=== PATIENT | female | born 1945 | race Caucasian/White ===

== ENCOUNTER 2020-11-11 14:41 | Inpatient (IN) | payer MEDICARE, SELFPAY ==
[2020-11-11 15:22] VITALS: BMI 21.5
[2020-11-11 15:27] VITALS: BP 125/67; PULSE 78; RESP 18; TEMP 36.4; O2SAT 92
[2020-11-11 15:37] VITALS: BMI 21.6
[2020-11-11 16:00] VITALS: BP 125/67; PULSE 78; RESP 18; TEMP 36.4; O2SAT 92
[2020-11-11] MEDS: Gabapentin 300 MG Capsule PO (17:25)
[2020-11-11] MEDS: Ascorbic Acid 500 MG Tablet PO (17:25)
[2020-11-11] MEDS: Docusate Sodium 100 MG Capsule PO (17:25)
[2020-11-11 17:47] VITALS: PULSE 78; RESP 18; O2SAT 92
--- NOTE | 2020-11-11 19:56 | HP.PCM_ITS ---
Problem List (1) Debility Status: Acute (2) Closed left hip fracture Status: Acute (3) Primary hyperparathyroidism Status: Chronic (4) Breast cancer Status: Chronic (5) Osteoporosis Status: Chronic (6) Hypertension Status: Chronic (7) Neuropathy Status: Chronic (8) Depression Status: Chronic (9) Hyperlipidemia Status: Chronic History of Present Illness Date of Admission: 11/11/20 Chief Complaint: Here for rehabilitation, strengthening, prior to discharge home alone. 11/07/20 The patient is a 74 year old Female with below past medical history presented to [facility] Emergency Department after a fall. She was walking in a crowd with a dog, and her leg gave out. X-ray showed left hip impacted fracture and she was admitted to [facility]. IV fluids, labs reviewed, EKG normal. Consult Orthopedics. 11/08/20 Orthopedics performed implant screw cannulated hip with C-arm. Postoperative course uncomplicated. 11/11/20 Admit to TCU with debility, here for rehabilitation, strengthening, prior to discharge home alone. Past Medical History Past Medical History (Chronic Problems): Chronic Problems Primary hyperparathyroidism (Chronic) Breast cancer (Chronic) Osteoporosis (Chronic) Hypertension (Chronic) Neuropathy (Chronic) Depression (Chronic) Hyperlipidemia (Chronic) Allergies bacitracin Allergy (Verified 11/11/20 15:51) Rash codeine Allergy (Verified 11/11/20 15:51) Upset Stomach Home Medications: Ambulatory Orders Medication Instructions Recorded Ascorbic Acid [Vitamin C] 500 mg PO BID 11/11/20 Aspirin [Aspirin EC] 81 mg PO DAILY 11/11/20 Biotin 5 mg PO BID 11/11/20 Bisacodyl [Laxative] 10 mg PO DAILY 11/11/20 Calcium Carbonate/Vitamin D3 1 ea PO DAILY 11/11/20 [Calcium 500 mg Chewable Tablet] Cyanocobalamin (Vitamin B-12) 1,000 mcg PO DAILY 11/11/20 [Vitamin B-12] Docusate Sodium [Colace] 100 mg PO BID 11/11/20 Enoxaparin [Lovenox] 40 mg SC DAILY@0600 11/11/20 Fish Oil/Dha/Epa [Fish Oil 1,200 1 tab PO DAILY 11/11/20 mg Fish Oil] Gabapentin [Neurontin] 300 mg PO TID 11/11/20 Irbesartan [Avapro] 75 mg PO DAILY 11/11/20 Magnesium Hydroxide [Milk of 30 ml PO QHS 11/11/20 Magnesia] Melatonin 3 mg PO QHS 11/11/20 Multivitamin 1 ea PO DAILY 11/11/20 Ondansetron [Zofran Odt] 4 mg PO Q6H PRN PRN 11/11/20 Sertraline HCl [Zoloft] 100 mg PO DAILY 11/11/20 Simvastatin [Zocor] 20 mg PO QHS 11/11/20 Sumatriptan Succinate [Imitrex] 100 mg PO PRN 11/11/20 traMADol [Ultram (G)] 50 mg PO Q8H PRN PRN 11/11/20 Surgical History: hysterectomy - Total abdominal., - - Lumbar decompression, thyroidectomy of right lobe, right breast lumpectomy. 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 Lives: Alone Smoking Status: Former smoker Tobacco Use: Cigarettes Alcohol: Occasional Drugs: None - *Family History Maternal History Items: Diabetes, Heart Disease, Hypertension Review of Systems Constitutional: Denies: Chills, Fever, Weight Change HEENT: Denies: Head Aches, Sinus Congestion, Sinus Drainage Cardiovascular: Denies: Chest Pain, Palpitations Respiratory: Denies: Cough, Shortness of breath at rest, Sputum production Gastrointestinal: Denies: Abdominal Pain, Nausea, Vomiting Genitourinary: Denies: Dysuria Musculoskeletal: Denies: Joint Pain, Joint Tenderness Skin: Denies: Rash, Wounds Neurological: Denies: Numbness, Tingling, Focal weakness Psychiatric: Denies: Anxiety, Depression, Homicidal Ideations, Suicidal Ideations Hematologic/ Lymphatic: Denies: Easy Bruising, Easy Bleeding VTE Information - Inpt Only VTE Present on Admission: No VTE Mechan Device Prophylaxis: Knee High JAE Hose VTE Pharm Prophylaxis ordered?: Yes Patient Problems: Active and Suspected Problems Debility (Acute) Closed left hip fracture (Acute) - Physical Exam Vitals/I&O's: Vital Signs Temp Pulse Resp BP Pulse Ox 97.6 F L 78 18 125/67 H 92 11/11/20 16:00 11/11/20 17:47 11/11/20 17:47 11/11/20 16:00 11/11/20 17:47 Oxygen Delivery Method Room Air Weight: 58.831 kg Body Mass Index (BMI) 21.5 General: Alert, Oriented x3, Cooperative HEENT: Atraumatic, PERRLA, EOMI, Normocephalic Neck: Supple, No JVD, Negative Carotid Bruits Lungs: Clear to auscultation, Normal air movement Cardiovascular: Regular rate, No murmurs Abdomen: Bowel Sounds Present, Soft, Non Tender Extremities: No edema, Capillary Refill Less than 3 Seconds Skin: No rashes, No breakdown Musculoskeletal: No Tenderness to Palpation of Joints or Extremities Neurological: Cranial nerves II-XII grossly intact Psych/Mental Status: Normal Affect, Appropriate Current Medications Ascorbic Acid (Ascorbic Acid 500 Mg Tablet) 500 mg PO BID [facility] Last Admin: 11/11/20 17:25 Dose: 500 mg Documented by: Aspirin (Aspirin E.C. 81 Mg Tablet) [facility] Atorvastatin Calcium (Atorvastatin Calcium 10 Mg Tablet) 10 mg PO QHS [facility] Bisacodyl (Bisacodyl 5 Mg Tablet) 10 mg PO DAILY [facility] Calcium/Vitamin D (Calcium Carb/Vitamin D 1 Tablet Tablet) [facility] Cyanocobalamin (Cyanocobalamin 500 Mcg Tablet) 1,000 mcg PO DAILY [facility] Docusate Sodium (Docusate Sodium 100 Mg Capsule) 100 mg PO BID [facility] Last Admin: 11/11/20 17:25 Dose: 100 mg Documented by: Enoxaparin Sodium (Enoxaparin 40 Mg/0.4 Ml Syringe) 40 mg SC DAILY@0600 [facility] Stop: 12/10/20 06:01 Gabapentin (Gabapentin 300 Mg Capsule) 300 mg PO TIDCM [facility] Last Admin: 11/11/20 17:25 Dose: 300 mg Documented by: Losartan Potassium (Losartan Potassium 25 Mg Tablet) 25 mg PO DAILY [facility] Magnesium Hydroxide (Magnesium Hydroxide 30 Ml Udc) 30 ml PO QHS [facility] Melatonin (Melatonin 3 Mg Tablet) 3 mg PO QHS [facility] Multivitamins (Multivitamins,Therapeutic Tablet) [facility] Nutritional Formula (Lactose Free) (Ensure Enlive 120 Ml Liquid) 120 ml PO 4X/DAY [facility] Last Admin: 11/11/20 17:25 Dose: 120 ml Documented by: Ondansetron HCl (Ondansetron Odt 4 Mg Tablet) 4 mg PO Q6H PRN PRN PRN Reason: NAUSEA Rizatriptan Benzoate (Rizatriptan Benzoate 10 Mg Tablet) 10 mg PO DAILY PRN PRN PRN Reason: MIGRAINE SYMPTOMS Sertraline HCl (Sertraline 100 Mg Tablet) 100 mg PO DAILY JODY Tramadol HCl (Tramadol 50 Mg Tablet) 50 mg PO Q8H PRN PRN PRN Reason: Pain 1-10 or Fever Stop: 11/14/20 23:30 Tuberculin PPD (Tuberculin,Purif.Prot.Deriv. 50 Tu/Ml Vial) 5 tu ID [id number] ONE Stop: 11/12/20 10:01 Tuberculin PPD (Tuberculin,Purif.Prot.Deriv. 50 Tu/Ml Vial) 5 tu ID X1 ONE Stop: 11/19/20 10:01 Assessment/Plan All Active Problems Debility (Acute) Closed left hip fracture (Acute) 74 year old female with below past medical history hospitalized for left hip fracture, underwent closed reduction fixation 11/08/20, admitted to TCU with debility, here for rehabilitation, strengthening, prior to discharge home alone. * Debility - PT/OT. * Pain - Tylenol 1000MG Q6H PRN pain (1-3), Tramadol 50MG Q6H PRN pain (4-5), Oxycodone 5MG Q4H PRN pain (6-10). * Bowel - Miralax 17GM daily, Senna/colace 2 tablets BID, MOM 30ML daily PRN, Dulcolax 10MG DE daily PRN. * Adult immunization - Administer Prevnar 13, Pneumovax 23, Fluzone as appropriate. * DVT prophylaxis - Lovenox 40MG SC daily thru 12/10/2020. * Vitamin C deficiency - Vitamin C 500MG BID. * CV prophylaxis - Aspirin 81MG daily. * Hyperlipidemia - Atorvastatin 10MG QHS. * Calcium deficiency - Calcium D 1 tablet daily. * Vitamin B12 deficiency - B12 1000MCG daily. * Nutrition - MVI daily, Ensure 120ML 4x/day. * Neuropathy - Gabapentin 300MG TIDCM. * Hypertension - Losartan 25MG daily. * Insomnia - Melatonin 3MG QHS. * Nausea - Zofran 4MG Q6H PRN. * Migraine - Maxalt 10MG daily PRN. * Depression - Sertraline 100MG daily, stable chronic roasterman use, GDR not recommended.
[2020-11-11] MEDS: traMADol 50 MG Tablet PO (21:36)
[2020-11-11] MEDS: MELATONIN 3 MG TABLET PO (21:37)
[2020-11-11] MEDS: Atorvastatin Calcium 10 MG Tablet PO (21:38)
[2020-11-12 05:01] VITALS: BP 136/80; PULSE 66; RESP 16; TEMP 36.8; O2SAT 97
[2020-11-12] MEDS: Losartan Potassium 25 MG Tablet PO (05:21)
[2020-11-12] MEDS: Sertraline 100 MG Tablet PO (05:21)
[2020-11-12] MEDS: Cyanocobalamin 500 MCG Tablet 1000 MCG PO (05:21)
[2020-11-12] MEDS: Enoxaparin 40 MG/0.4 ML Syringe SC (05:21)
[2020-11-12] MEDS: Ascorbic Acid 500 MG Tablet PO ×2 (05:21→17:47)
[2020-11-12] MEDS: Polyethylene Glycol 3350 17 GM PACKET PO (05:22)
[2020-11-12] MEDS: Senna/Docusate Sodium 1 Tablet 2 TABLET PO ×2 (05:23→17:47)
[2020-11-12 06:05] LABS: Absolute Lymphocyte Count 1.28 X10^3/uL (0.83-4.51); Absolute Neutrophil Count 4.9 X10^3/uL (2.0-7.7); Basophil# 0.03 X10^3/uL; Basophil% 0.4 % (0-1); Eosinophil# 0.42 X10^3/uL; Eosinophils% 5.8 % (0-5); Hematocrit 36.3 % (37-47); Hemoglobin 11.5 g/dL (12.0-15.0); Lymphocyte # 1.28 X10^3/ul (4.0); Lymphocyte % 17.6 % (19-41); Mean Corp Hgb Conc 31.7 g/dL (32-36); Mean Corpuscular Hgb 29.3 pg (27.0-32.0); Mean Corpuscular Volume 92.6 fL (81-99); Mean Platelet Vol. 9.8 fl (6.2-12.0); Monocyte# 0.66 X10^3/uL; Monocyte% 9.1 % (0-10); NRBC Flagged by Analyzer 0 % (0-5); Neutrophil # 4.87 X10^3/uL (2.7-7.7); Neutrophil % 66.8 % (47-70); Platelet Count 319 K/mm3 (150-450); RBC Distribution Width CV 13.2 % (11.6-14.6); RBC Distribution Width SD 44.8 fl (35.1-43.9); Red Blood Count 3.92 M/mm3 (4.2-5.4); White Blood Count 7.3 K/mm3 (4.4-11.0)
[2020-11-12 06:37] LABS: Anion Gap 4 (5-15); BUN 20 mg/dL (7-18); BUN/Creat Ratio 41.2 RATIO (10-20); Calcium,Total 9.3 mg/dL (8.5-10.1); Chloride 105 mmol/L (98-107); Creatinine, Serum 0.49 mg/dL (0.55-1.02); EST Glomerular Filtration Rate 131 mL/min (>60); Est Glom Filt Rate - Afr Amer 159 mL/min (>60); Estimated Creatinine Clearance 43.07 ml/min; Glucose 81 mg/dL (74-106); Potassium 3.3 mmol/L (3.5-5.1); Sodium Level 139 mmol/L (136-145)
[2020-11-12] MEDS: traMADol 50 MG Tablet PO ×2 (07:16→21:11)
[2020-11-12] MEDS: Gabapentin 300 MG Capsule PO ×3 (08:40→17:47)
[2020-11-12] MEDS: Aspirin E.C. 81 MG Tablet PO (08:40)
[2020-11-12] MEDS: Multivitamins,Therapeutic Tablet 1 TABLET PO (08:40)
[2020-11-12] MEDS: Tuberculin,Purif.prot.deriv. 50 TU/ML Vial 5 ML ID (11:35)
--- NOTE | 2020-11-12 15:00 | PCM.PN.RX ---
<Jade Mackey - Last Filed: 11/12/20 15:00> Progress Note - Pharmacy Subjective: TCU Admission Objective: Allergies bacitracin Allergy (Verified 11/11/20 15:51) Rash codeine Allergy (Verified 11/11/20 15:51) Upset Stomach Current Medications Generic Name Dose Route Start Last Admin Trade Name Freq PRN Reason Stop Dose Admin Acetaminophen 1,000 mg 11/11/20 20:19 Acetaminophen 500 Mg Tablet PO Q6H PRN Pain Score 1-3 Ascorbic Acid 500 mg 11/11/20 18:00 11/12/20 05:21 Ascorbic Acid 500 Mg Tablet PO 500 mg BID JODY Administration Aspirin 81 mg 11/12/20 08:00 11/12/20 08:40 Aspirin E.C. 81 Mg Tablet PO 81 mg DAILYCM JODY Administration Atorvastatin Calcium 10 mg 11/11/20 22:00 11/11/20 21:38 Atorvastatin Calcium 10 Mg Tablet PO 10 mg QHS JODY Administration Bisacodyl 10 mg 11/11/20 20:18 Bisacodyl 10 Mg Suppository RECTAL DAILY PRN Constipation Cyanocobalamin 1,000 mcg 11/12/20 06:00 11/12/20 05:21 Cyanocobalamin 500 Mcg Tablet PO 1,000 mcg DAILY JODY Administration Enoxaparin Sodium 40 mg 11/12/20 06:00 11/12/20 05:21 Enoxaparin 40 Mg/0.4 Ml Syringe SC 12/10/20 06:01 40 mg DAILY@0600 JODY Administration Gabapentin 300 mg 11/11/20 17:45 11/12/20 11:38 Gabapentin 300 Mg Capsule PO 300 mg TIDCM JODY Administration Losartan Potassium 25 mg 11/12/20 06:00 11/12/20 05:21 Losartan Potassium 25 Mg Tablet PO 25 mg DAILY JODY Administration Magnesium Hydroxide 30 ml 11/11/20 20:19 Magnesium Hydroxide 30 Ml Udc PO DAILY PRN Constipation Melatonin 3 mg 11/11/20 22:00 11/11/20 21:37 Melatonin 3 Mg Tablet PO 3 mg QHS JODY Administration Multivitamins 1 tablet 11/12/20 08:00 11/12/20 08:40 Multivitamins,Therapeutic Tablet PO 1 tablet DAILYCM JODY Administration Ondansetron HCl 4 mg 11/11/20 15:40 Ondansetron Odt 4 Mg Tablet PO Q6H PRN PRN NAUSEA Oxycodone HCl 5 mg 11/11/20 20:20 Oxycodone 5 Mg Tablet PO Q4H PRN PRN Pain Score 6-10 Polyethylene Glycol 17 gm 11/12/20 06:00 11/12/20 05:22 Polyethylene Glycol 3350 17 Gm Packet PO 17 gm DAILY JODY Administration Potassium Chloride 20 meq 11/12/20 08:00 11/12/20 08:39 Potassium Chloride 20 Meq Tablet PO 11/19/20 08:01 20 meq DAILYCM JODY Administration Rizatriptan Benzoate 10 mg 11/11/20 16:16 Rizatriptan Benzoate 10 Mg Tablet PO DAILY PRN PRN MIGRAINE SYMPTOMS Senna/Docusate Sodium 2 tablet 11/12/20 06:00 11/12/20 05:23 Senna/Docusate Sodium 1 Tablet PO 2 tablet BID JODY Administration Sertraline HCl 100 mg 11/12/20 06:00 11/12/20 05:21 Sertraline 100 Mg Tablet PO 100 mg DAILY JODY Administration Tramadol HCl 50 mg 11/11/20 20:20 11/12/20 07:16 Tramadol 50 Mg Tablet PO 50 mg Q6H PRN Administration Pain Score 4-5 Tuberculin PPD 5 tu 11/19/20 10:00 Tuberculin,Purif.Prot.Deriv. 50 Tu/Ml Vial ID 11/19/20 10:01 X1 ONE Problem List Debility (Acute) Closed left hip fracture (Acute) Primary hyperparathyroidism (Chronic) Breast cancer (Chronic) Osteoporosis (Chronic) Hypertension (Chronic) Neuropathy (Chronic) Depression (Chronic) Hyperlipidemia (Chronic) Vital Signs Temp Pulse Resp BP Pulse Ox 98.3 F 66 16 136/80 H 97 11/12/20 05:01 11/12/20 05:01 11/12/20 05:01 11/12/20 05:01 11/12/20 05:01 Oxygen Delivery Method Room Air Weight: 58.831 kg Body Mass Index (BMI) 21.5 Sodium 139 mmol/L (136-145) 11/12/20 05:46 Potassium 3.3 mmol/L (3.5-5.1) L 11/12/20 05:46 Chloride 105 mmol/L (98-107) 11/12/20 05:46 Carbon Dioxide 30.0 mmol/L (21.0-32.0) 11/12/20 05:46 Anion Gap 4 (5-15) L 11/12/20 05:46 BUN 20 mg/dL (7-18) H 11/12/20 05:46 Creatinine 0.49 mg/dL (0.55-1.02) L 11/12/20 05:46 Est GFR (MDRD) Af Amer 159 mL/min (>60) 11/12/20 05:46 Est GFR (MDRD) Non-Af 131 mL/min (>60) 11/12/20 05:46 BUN/Creatinine Ratio 41.2 RATIO (10-20) H 11/12/20 05:46 Glucose 81 mg/dL (74-106) 11/12/20 05:46 Assessment/Plan: 1. Pain: acetaminophen 1000mg PO Q6H PRN pain 1-3/10, tramadol 50mg PO Q6H PRN pain 4-5/10 and oxycodone 5mg PO Q4H PRN pain 6-10/10. Please continue to monitor for increased pain, PRN usage, constipation and respiratory depression. 2. DVT prophylaxis: enoxaparin 40mg SC daily thru 12/10/20. Please continue to monitor for S/S of bleeding/DVT, platelets (last 319,000), hemoglobin (last 11.5g/dL) and renal function. 3. CV prophylaxis: aspirin 81mg PO daily. Please continue to monitor for S/S of bleeding. *4. Hyperlipidemia: atorvastatin 10mg PO QHS. Please consider ordering a lipid panel now and then annually as clinically appropriate. Patient does not have a panel in chart. 5. Hypertension: losartan 25mg PO daily. Please continue to monitor renal function and BP (last 136/80). 6. Neuropathy: gabapentin 300mg PO TIDCM. Please continue to monitor for confusion. 7. Insomnia: melatonin 3mg PO QHS. Please continue to monitor for excessive drowsiness. 8. Nausea: ondansetron 4mg PO Q6H PRN nausea. Please continue to monitor for nausea and PRN usage. 9. Migraine: rizatriptan 10mg PO daily PRN migraines. Please continue to monitor for migraines. 10. Hypokalemia (potassium 3.3mmol/L): potassium chloride 20mEq PO DAILYCM thru 11/19/20. Please continue to monitor potassium levels. *11. Vitamin deficiencies/overall nutrition: multivitamin 1T PO DAILYCM, ascorbic acid 500mg PO BID and cyanocobalamin 1000mcg PO daily. Please consider ordering a vitamin B12 level. Patient does not have one in chart. Thanks. Psychotropic Medications: 1. Depression: sertraline 100mg PO daily. Please see physician note regarding GDR. Unnecessary Medications: Bowel Regimen: Miralax 17gm PO daily, senna/docusate 2T PO BID, MOM 30 mL PO daily PRN constipation, and bisacodyl 10mg MS daily PRN constipation. Please continue to monitor for S/S of constipation and PRN usage. Date of Note:: 11/12/20 - Provider Comments Provider responsibility: Provider responsible to enter orders to implement recommendations <Brent Khan Chi - Last Filed: 11/12/20 15:18> Progress Note - Pharmacy Subjective: [] Objective: Allergies bacitracin Allergy (Verified 11/11/20 15:51) Rash codeine Allergy (Verified 11/11/20 15:51) Upset Stomach Current Medications Generic Name Dose Route Start Last Admin Trade Name Freq PRN Reason Stop Dose Admin Acetaminophen 1,000 mg 11/11/20 20:19 Acetaminophen 500 Mg Tablet PO Q6H PRN Pain Score 1-3 Ascorbic Acid 500 mg 11/11/20 18:00 11/12/20 05:21 Ascorbic Acid 500 Mg Tablet PO 500 mg BID JODY Administration Aspirin 81 mg 11/12/20 08:00 11/12/20 08:40 Aspirin E.C. 81 Mg Tablet PO 81 mg DAILYCM JODY Administration Atorvastatin Calcium 10 mg 11/11/20 22:00 11/11/20 21:38 Atorvastatin Calcium 10 Mg Tablet PO 10 mg QHS JODY Administration Bisacodyl 10 mg 11/11/20 20:18 Bisacodyl 10 Mg Suppository RECTAL DAILY PRN Constipation Cyanocobalamin 1,000 mcg 11/12/20 06:00 11/12/20 05:21 Cyanocobalamin 500 Mcg Tablet PO 1,000 mcg DAILY JODY Administration Enoxaparin Sodium 40 mg 11/12/20 06:00 11/12/20 05:21 Enoxaparin 40 Mg/0.4 Ml Syringe SC 12/10/20 06:01 40 mg DAILY@0600 JODY Administration Gabapentin 300 mg 11/11/20 17:45 11/12/20 11:38 Gabapentin 300 Mg Capsule PO 300 mg TIDCM JODY Administration Losartan Potassium 25 mg 11/12/20 06:00 11/12/20 05:21 Losartan Potassium 25 Mg Tablet PO 25 mg DAILY JODY Administration Magnesium Hydroxide 30 ml 11/11/20 20:19 Magnesium Hydroxide 30 Ml Udc PO DAILY PRN Constipation Melatonin 3 mg 11/11/20 22:00 11/11/20 21:37 Melatonin 3 Mg Tablet PO 3 mg QHS JODY Administration Multivitamins 1 tablet 11/12/20 08:00 11/12/20 08:40 Multivitamins,Therapeutic Tablet PO 1 tablet DAILYCM [facility] Administration Ondansetron HCl 4 mg 11/11/20 15:40 Ondansetron Odt 4 Mg Tablet PO Q6H PRN PRN NAUSEA Oxycodone HCl 5 mg 11/11/20 20:20 Oxycodone 5 Mg Tablet PO Q4H PRN PRN Pain Score 6-10 Polyethylene Glycol 17 gm 11/12/20 06:00 11/12/20 05:22 Polyethylene Glycol 3350 17 Gm Packet PO 17 gm DAILY [facility] Administration Potassium Chloride 20 meq 11/12/20 08:00 11/12/20 08:39 Potassium Chloride 20 Meq Tablet PO 11/19/20 08:01 20 meq DAILYCM [facility] Administration Rizatriptan Benzoate 10 mg 11/11/20 16:16 Rizatriptan Benzoate 10 Mg Tablet PO DAILY PRN PRN MIGRAINE SYMPTOMS Senna/Docusate Sodium 2 tablet 11/12/20 06:00 11/12/20 05:23 Senna/Docusate Sodium 1 Tablet PO 2 tablet BID [facility] Administration Sertraline HCl 100 mg 11/12/20 06:00 11/12/20 05:21 Sertraline 100 Mg Tablet PO 100 mg DAILY [facility] Administration Tramadol HCl 50 mg 11/11/20 20:20 11/12/20 07:16 Tramadol 50 Mg Tablet PO 50 mg Q6H PRN Administration Pain Score 4-5 Tuberculin PPD 5 tu 11/19/20 10:00 Tuberculin,Purif.Prot.Deriv. 50 Tu/Ml Vial ID 11/19/20 10:01 X1 ONE Problem List Debility (Acute) Closed left hip fracture (Acute) Primary hyperparathyroidism (Chronic) Breast cancer (Chronic) Osteoporosis (Chronic) Hypertension (Chronic) Neuropathy (Chronic) Depression (Chronic) Hyperlipidemia (Chronic) Vital Signs Temp Pulse Resp BP Pulse Ox 98.0 F 65 16 118/61 96 11/12/20 15:01 11/12/20 15:01 11/12/20 15:01 11/12/20 15:01 11/12/20 15:01 Oxygen Delivery Method Room Air Weight: 58.831 kg Body Mass Index (BMI) 21.5 Sodium 139 mmol/L (136-145) 11/12/20 05:46 Potassium 3.3 mmol/L (3.5-5.1) L 11/12/20 05:46 Chloride 105 mmol/L (98-107) 11/12/20 05:46 Carbon Dioxide 30.0 mmol/L (21.0-32.0) 11/12/20 05:46 Anion Gap 4 (5-15) L 11/12/20 05:46 BUN 20 mg/dL (7-18) H 11/12/20 05:46 Creatinine 0.49 mg/dL (0.55-1.02) L 11/12/20 05:46 Est GFR (MDRD) Af Amer 159 mL/min (>60) 11/12/20 05:46 Est GFR (MDRD) Non-Af 131 mL/min (>60) 11/12/20 05:46 BUN/Creatinine Ratio 41.2 RATIO (10-20) H 11/12/20 05:46 Glucose 81 mg/dL (74-106) 11/12/20 05:46 Assessment/Plan: Psychotropic Medications: Unnecessary Medications: Bowel Regimen: - Provider Comments Provider responsibility: Provider responsible to enter orders to implement recommendations Provider Comments to Recommendations by Pharmacy: Agree
[2020-11-12 15:01] VITALS: BP 118/61; PULSE 65; RESP 16; TEMP 36.7; O2SAT 96
--- NOTE | 2020-11-12 15:57 | CASEMGMT ---
Social Work Discussed code status with pt. Pt wishes to be DNR-CCA, no intubation. Nursing notified. MOLST form reviewed, communication to , placed in chart. Cielo Adams MSW AUDIOPROSTHOLOGIST
--- NOTE | 2020-11-12 16:47 | NURSING ---
Resident and nephew, Ramon, notified of staff member testing positive for COVID.
[2020-11-12] MEDS: Atorvastatin Calcium 10 MG Tablet PO (21:13)
[2020-11-12] MEDS: MELATONIN 3 MG TABLET PO (21:14)
[2020-11-13 05:58] VITALS: BP 146/75; PULSE 67; RESP 16; TEMP 36.3; O2SAT 93
[2020-11-13] MEDS: traMADol 50 MG Tablet PO ×3 (05:59→21:23)
[2020-11-13] MEDS: Polyethylene Glycol 3350 17 GM PACKET PO (06:00)
[2020-11-13] MEDS: Cyanocobalamin 500 MCG Tablet 1000 MCG PO (06:00)
[2020-11-13] MEDS: Losartan Potassium 25 MG Tablet PO (06:00)
[2020-11-13] MEDS: Sertraline 100 MG Tablet PO (06:00)
[2020-11-13] MEDS: Senna/Docusate Sodium 1 Tablet 2 TABLET PO ×2 (06:00→16:49)
[2020-11-13] MEDS: Gabapentin 300 MG Capsule PO ×3 (06:00→16:49)
[2020-11-13] MEDS: Enoxaparin 40 MG/0.4 ML Syringe SC (06:00)
[2020-11-13] MEDS: Ascorbic Acid 500 MG Tablet PO ×2 (06:01→16:50)
[2020-11-13] MEDS: Multivitamins,Therapeutic Tablet 1 TABLET PO (08:51)
[2020-11-13] MEDS: Aspirin E.C. 81 MG Tablet PO (08:51)
[2020-11-13] MEDS: Acetaminophen 500 MG Tablet 1000 MG PO (11:48)
[2020-11-13 13:54] VITALS: BP 102/59; PULSE 68; RESP 16; TEMP 36.6; O2SAT 93
[2020-11-13] MEDS: MELATONIN 3 MG TABLET PO (21:19)
[2020-11-13] MEDS: Atorvastatin Calcium 10 MG Tablet PO (21:19)
[2020-11-14 04:00] VITALS: BP 112/63; PULSE 68; RESP 18; TEMP 36.7; O2SAT 97
[2020-11-14 05:48] LABS: Anion Gap 3 (5-15); BUN 18 mg/dL (7-18); BUN/Creat Ratio 35.3 RATIO (10-20); Calcium,Total 9.3 mg/dL (8.5-10.1); Chloride 106 mmol/L (98-107); Creatinine, Serum 0.51 mg/dL (0.55-1.02); EST Glomerular Filtration Rate 124 mL/min (>60); Est Glom Filt Rate - Afr Amer 150 mL/min (>60); Estimated Creatinine Clearance 43.07 ml/min; Glucose 86 mg/dL (74-106); Potassium 4.3 mmol/L (3.5-5.1); Sodium Level 140 mmol/L (136-145)
[2020-11-14] MEDS: Cyanocobalamin 500 MCG Tablet 1000 MCG PO (06:12)
[2020-11-14] MEDS: Senna/Docusate Sodium 1 Tablet 2 TABLET PO ×2 (06:13→16:17)
[2020-11-14] MEDS: Losartan Potassium 25 MG Tablet PO (06:13)
[2020-11-14] MEDS: Sertraline 100 MG Tablet PO (06:13)
[2020-11-14] MEDS: Ascorbic Acid 500 MG Tablet PO ×2 (06:13→16:17)
[2020-11-14] MEDS: Polyethylene Glycol 3350 17 GM PACKET PO (06:14)
[2020-11-14] MEDS: Enoxaparin 40 MG/0.4 ML Syringe SC (06:16)
[2020-11-14] MEDS: Gabapentin 300 MG Capsule PO ×3 (08:42→16:17)
[2020-11-14] MEDS: Multivitamins,Therapeutic Tablet 1 TABLET PO (08:42)
[2020-11-14] MEDS: Aspirin E.C. 81 MG Tablet PO (08:42)
[2020-11-14 12:21] VITALS: BP 116/62; PULSE 63; RESP 16; TEMP 37; O2SAT 96
[2020-11-14] MEDS: Atorvastatin Calcium 10 MG Tablet PO (20:18)
[2020-11-14] MEDS: MELATONIN 3 MG TABLET PO (21:48)
[2020-11-14] MEDS: traMADol 50 MG Tablet PO (21:48)
[2020-11-15 04:41] VITALS: BP 141/82; PULSE 64; RESP 18; TEMP 36.8; O2SAT 97
[2020-11-15] MEDS: Acetaminophen 500 MG Tablet 1000 MG PO ×2 (04:42→12:29)
[2020-11-15] MEDS: Cyanocobalamin 500 MCG Tablet 1000 MCG PO (04:43)
[2020-11-15] MEDS: Losartan Potassium 25 MG Tablet PO (04:43)
[2020-11-15] MEDS: Polyethylene Glycol 3350 17 GM PACKET PO (04:43)
[2020-11-15] MEDS: Ascorbic Acid 500 MG Tablet PO ×2 (04:44→17:03)
[2020-11-15] MEDS: Gabapentin 300 MG Capsule PO ×3 (04:44→17:03)
[2020-11-15] MEDS: Senna/Docusate Sodium 1 Tablet 2 TABLET PO ×2 (04:44→17:03)
[2020-11-15] MEDS: Sertraline 100 MG Tablet PO (04:44)
[2020-11-15] MEDS: Enoxaparin 40 MG/0.4 ML Syringe SC (04:45)
[2020-11-15] MEDS: Multivitamins,Therapeutic Tablet 1 TABLET PO (08:44)
[2020-11-15] MEDS: Aspirin E.C. 81 MG Tablet PO (08:44)
[2020-11-15 14:54] VITALS: BP 113/63; PULSE 63; RESP 18; TEMP 36.2; O2SAT 95
[2020-11-15] MEDS: MELATONIN 3 MG TABLET PO (21:33)
[2020-11-15] MEDS: Atorvastatin Calcium 10 MG Tablet PO (21:33)
[2020-11-15] MEDS: traMADol 50 MG Tablet PO (23:37)
[2020-11-16 05:44] VITALS: BP 138/62; PULSE 63; RESP 18; TEMP 36.3; O2SAT 94
[2020-11-16] MEDS: Cyanocobalamin 500 MCG Tablet 1000 MCG PO (05:45)
[2020-11-16] MEDS: Sertraline 100 MG Tablet PO (05:45)
[2020-11-16] MEDS: Enoxaparin 40 MG/0.4 ML Syringe SC (05:45)
[2020-11-16] MEDS: Ascorbic Acid 500 MG Tablet PO ×2 (05:45→17:02)
[2020-11-16] MEDS: Losartan Potassium 25 MG Tablet PO (05:45)
[2020-11-16] MEDS: Gabapentin 300 MG Capsule PO ×3 (05:45→17:02)
[2020-11-16] MEDS: Aspirin E.C. 81 MG Tablet PO (08:38)
[2020-11-16] MEDS: Multivitamins,Therapeutic Tablet 1 TABLET PO (08:38)
[2020-11-16] MEDS: Acetaminophen 500 MG Tablet 1000 MG PO (10:42)
[2020-11-16 14:32] VITALS: BP 102/49; PULSE 61; RESP 16; TEMP 36.6; O2SAT 95
[2020-11-16] MEDS: Senna/Docusate Sodium 1 Tablet 2 TABLET PO (17:02)
[2020-11-16] MEDS: MELATONIN 3 MG TABLET PO (20:43)
[2020-11-16] MEDS: Atorvastatin Calcium 10 MG Tablet PO (20:43)
[2020-11-16] MEDS: traMADol 50 MG Tablet PO (20:48)
[2020-11-17 04:00] VITALS: BP 129/50; PULSE 60; RESP 18; TEMP 36.7; O2SAT 96
[2020-11-17] MEDS: Losartan Potassium 25 MG Tablet PO (07:12)
[2020-11-17] MEDS: Enoxaparin 40 MG/0.4 ML Syringe SC (07:12)
[2020-11-17] MEDS: Ascorbic Acid 500 MG Tablet PO ×2 (07:13→16:29)
[2020-11-17] MEDS: Cyanocobalamin 500 MCG Tablet 1000 MCG PO (07:13)
[2020-11-17] MEDS: Sertraline 100 MG Tablet PO (07:13)
[2020-11-17] MEDS: Aspirin E.C. 81 MG Tablet PO (08:27)
[2020-11-17] MEDS: Multivitamins,Therapeutic Tablet 1 TABLET PO (08:28)
[2020-11-17] MEDS: Gabapentin 300 MG Capsule PO ×3 (08:28→16:29)
--- NOTE | 2020-11-17 12:54 | CASEMGMT ---
Social Work IDT met with patient and nephew via conference call for care plan meeting. Discussed patient's progress in therapy. Pt is SBA for bed mobility, CGA for tx, CGA to ambulate 15 ft with FWW and maintaining TTWBS. Pt is set up for UE ADLs at w/c level, supervised for LE ADLS, CGA for toileting, CGA for shower tx. Pt is on a regular diet, good intake, weight stable. Pt is out of isolation 11/25. Explained [employer] insurance with NRD 11/22 and continued stay is not guaranteed. Pt's goal is to return home alone with 3 steps to enter at [facility]. Explained pt is progressing well and continued stay from insurance is not guaranteed. Pt stated she has appealed twice prior from insurance cuts, and feels she is not ready to DC home. Discussed areas to continue to strengthen. Pt would like to be independent for bed mobility, and states she is currently needing assistance with left leg. She will also like to be independent in the shower and with toileting, and does not feel safe alone currently. therapist took note of requested areas to improve upon. SW provided list of nonskilled [facility] agencies to begin looking to hire if pt is cut and still does not feel safe at home alone. Will continue to follow. Cielo Adams, TRAILER TANK TRUCK DRIVER BOND WRITER
[2020-11-17 14:50] VITALS: BP 129/51; PULSE 58; RESP 16; TEMP 36.7; O2SAT 95
[2020-11-17] MEDS: traMADol 50 MG Tablet PO ×2 (16:26→23:06)
[2020-11-17] MEDS: Senna/Docusate Sodium 1 Tablet 2 TABLET PO (16:29)
[2020-11-17 16:30] VITALS: PULSE 58; RESP 18; O2SAT 96
[2020-11-17] MEDS: Atorvastatin Calcium 10 MG Tablet PO (20:13)
[2020-11-17] MEDS: MELATONIN 3 MG TABLET PO (20:13)
[2020-11-17] MEDS: Acetaminophen 500 MG Tablet 1000 MG PO (20:14)
[2020-11-18 04:00] VITALS: BP 114/54; PULSE 59; RESP 16; TEMP 36.3; O2SAT 97
[2020-11-18] MEDS: Cyanocobalamin 500 MCG Tablet 1000 MCG PO (06:11)
[2020-11-18] MEDS: Losartan Potassium 25 MG Tablet PO (06:11)
[2020-11-18] MEDS: Sertraline 100 MG Tablet PO (06:11)
[2020-11-18] MEDS: Ascorbic Acid 500 MG Tablet PO ×2 (06:12→17:42)
[2020-11-18] MEDS: Enoxaparin 40 MG/0.4 ML Syringe SC (06:12)
[2020-11-18] MEDS: Acetaminophen 500 MG Tablet 1000 MG PO (06:45)
[2020-11-18] MEDS: Polyethylene Glycol 3350 17 GM PACKET PO (06:47)
[2020-11-18] MEDS: Aspirin E.C. 81 MG Tablet PO (09:00)
[2020-11-18] MEDS: Multivitamins,Therapeutic Tablet 1 TABLET PO (09:00)
[2020-11-18] MEDS: Gabapentin 300 MG Capsule PO ×3 (09:00→17:42)
[2020-11-18] MEDS: traMADol 50 MG Tablet PO ×2 (11:23→21:18)
[2020-11-18 14:27] VITALS: BP 118/52; PULSE 60; RESP 16; TEMP 36.6; O2SAT 96
[2020-11-18] MEDS: Senna/Docusate Sodium 1 Tablet 2 TABLET PO (17:42)
[2020-11-18] MEDS: Atorvastatin Calcium 10 MG Tablet PO (21:19)
[2020-11-18] MEDS: MELATONIN 3 MG TABLET PO (21:19)
[2020-11-19] MEDS: Acetaminophen 500 MG Tablet 1000 MG PO ×2 (01:38→12:02)
[2020-11-19 01:58] VITALS: BP 123/58; PULSE 55; RESP 16; TEMP 36.6; O2SAT 96
[2020-11-19] MEDS: Polyethylene Glycol 3350 17 GM PACKET PO (06:02)
[2020-11-19] MEDS: Ascorbic Acid 500 MG Tablet PO ×2 (06:04→17:34)
[2020-11-19] MEDS: Sertraline 100 MG Tablet PO (06:04)
[2020-11-19] MEDS: Losartan Potassium 25 MG Tablet PO (06:04)
[2020-11-19] MEDS: Cyanocobalamin 500 MCG Tablet 1000 MCG PO (06:05)
[2020-11-19] MEDS: Senna/Docusate Sodium 1 Tablet 2 TABLET PO ×2 (06:05→17:34)
[2020-11-19] MEDS: Enoxaparin 40 MG/0.4 ML Syringe SC (06:06)
[2020-11-19 06:10] LABS: Absolute Lymphocyte Count 1.63 X10^3/uL (0.83-4.51); Absolute Neutrophil Count 6.3 X10^3/uL (2.0-7.7); Basophil# 0.04 X10^3/uL; Basophil% 0.4 % (0-1); Eosinophil# 0.33 X10^3/uL; Eosinophils% 3.7 % (0-5); Hematocrit 37.3 % (37-47); Hemoglobin 11.7 g/dL (12.0-15.0); Lymphocyte # 1.63 X10^3/ul (4.0); Lymphocyte % 18.2 % (19-41); Mean Corp Hgb Conc 31.4 g/dL (32-36); Mean Corpuscular Hgb 29.6 pg (27.0-32.0); Mean Corpuscular Volume 94.4 fL (81-99); Mean Platelet Vol. 9.2 fl (6.2-12.0); Monocyte# 0.58 X10^3/uL; Monocyte% 6.5 % (0-10); NRBC Flagged by Analyzer 0 % (0-5); Neutrophil # 6.31 X10^3/uL (2.7-7.7); Neutrophil % 70.6 % (47-70); Platelet Count 471 K/mm3 (150-450); RBC Distribution Width CV 13.6 % (11.6-14.6); RBC Distribution Width SD 47.1 fl (35.1-43.9); Red Blood Count 3.95 M/mm3 (4.2-5.4); White Blood Count 8.9 K/mm3 (4.4-11.0)
[2020-11-19 06:39] LABS: Anion Gap 3 (5-15); BUN 23 mg/dL (7-18); BUN/Creat Ratio 38.2 RATIO (10-20); Calcium,Total 9.5 mg/dL (8.5-10.1); Chloride 106 mmol/L (98-107); EST Glomerular Filtration Rate 103 mL/min (>60); Est Glom Filt Rate - Afr Amer 124 mL/min (>60); Estimated Creatinine Clearance 43.07 ml/min; Glucose 82 mg/dL (74-106); Potassium 4.3 mmol/L (3.5-5.1); Sodium Level 138 mmol/L (136-145)
[2020-11-19] MEDS: Multivitamins,Therapeutic Tablet 1 TABLET PO (08:09)
[2020-11-19] MEDS: Gabapentin 300 MG Capsule PO ×3 (08:09→17:34)
[2020-11-19] MEDS: Aspirin E.C. 81 MG Tablet PO (08:09)
[2020-11-19 09:27] VITALS: PULSE 62; RESP 16; O2SAT 95
[2020-11-19] MEDS: Tuberculin,Purif.prot.deriv. 50 TU/ML Vial 5 ML ID (10:35)
[2020-11-19 15:41] VITALS: BP 111/50; PULSE 65; RESP 16; TEMP 36.8; O2SAT 95
[2020-11-19] MEDS: Atorvastatin Calcium 10 MG Tablet PO (20:51)
[2020-11-19] MEDS: MELATONIN 3 MG TABLET PO (20:51)
[2020-11-19] MEDS: traMADol 50 MG Tablet PO (20:52)
[2020-11-20] MEDS: Acetaminophen 500 MG Tablet 1000 MG PO ×2 (01:16→12:05)
[2020-11-20 04:00] VITALS: BP 135/75; PULSE 59; RESP 16; TEMP 36.3; O2SAT 94
[2020-11-20] MEDS: Sertraline 100 MG Tablet PO (06:16)
[2020-11-20] MEDS: Cyanocobalamin 500 MCG Tablet 1000 MCG PO (06:16)
[2020-11-20] MEDS: Losartan Potassium 25 MG Tablet PO (06:16)
[2020-11-20] MEDS: Senna/Docusate Sodium 1 Tablet 2 TABLET PO ×2 (06:17→17:30)
[2020-11-20] MEDS: Ascorbic Acid 500 MG Tablet PO ×2 (06:17→17:30)
[2020-11-20] MEDS: Polyethylene Glycol 3350 17 GM PACKET PO (06:17)
[2020-11-20] MEDS: Enoxaparin 40 MG/0.4 ML Syringe SC (06:20)
[2020-11-20] MEDS: Aspirin E.C. 81 MG Tablet PO (08:29)
[2020-11-20] MEDS: Multivitamins,Therapeutic Tablet 1 TABLET PO (08:29)
[2020-11-20] MEDS: Gabapentin 300 MG Capsule PO ×3 (08:29→17:30)
[2020-11-20 14:29] VITALS: BP 121/60; PULSE 57; RESP 16; TEMP 36.8; O2SAT 93
[2020-11-20] MEDS: traMADol 50 MG Tablet PO (17:35)
[2020-11-20] MEDS: Atorvastatin Calcium 10 MG Tablet PO (21:55)
[2020-11-20] MEDS: MELATONIN 3 MG TABLET PO (22:01)
[2020-11-21] MEDS: traMADol 50 MG Tablet PO ×2 (00:29→21:53)
[2020-11-21 05:21] VITALS: BP 142/73; PULSE 62; RESP 16; TEMP 36.3; O2SAT 97
[2020-11-21] MEDS: Enoxaparin 40 MG/0.4 ML Syringe SC (05:21)
[2020-11-21] MEDS: Sertraline 100 MG Tablet PO (05:23)
[2020-11-21] MEDS: Ascorbic Acid 500 MG Tablet PO ×2 (05:23→16:48)
[2020-11-21] MEDS: Gabapentin 300 MG Capsule PO ×3 (05:23→16:48)
[2020-11-21] MEDS: Cyanocobalamin 500 MCG Tablet 1000 MCG PO (05:23)
[2020-11-21] MEDS: Losartan Potassium 25 MG Tablet PO (05:23)
[2020-11-21] MEDS: Acetaminophen 500 MG Tablet 1000 MG PO (08:39)
[2020-11-21] MEDS: Multivitamins,Therapeutic Tablet 1 TABLET PO (08:40)
[2020-11-21] MEDS: Aspirin E.C. 81 MG Tablet PO (08:40)
[2020-11-21 14:22] VITALS: PULSE 64; RESP 16; O2SAT 97
[2020-11-21 15:57] VITALS: BP 109/63; PULSE 58; RESP 16; TEMP 36.4; O2SAT 95
[2020-11-21] MEDS: Atorvastatin Calcium 10 MG Tablet PO (21:49)
[2020-11-21] MEDS: MELATONIN 3 MG TABLET PO (21:52)
[2020-11-22] MEDS: Acetaminophen 500 MG Tablet 1000 MG PO ×3 (00:13→20:59)
--- NOTE | 2020-11-22 00:19 | NURSING ---
Addendum entered by Alma Peterson 11/22/20 06:07: Incision site reassessed this am, area is firm and tender, warm to the touch, will update Dr. Khan. Original Note: Pt called out, c/o increased pain in lt hip/thigh, shooting pains down her thigh. Does not want oxy ir at this time, will try Tylenol. repositioned and warm blanket applied to lt hip/thigh. No warmth, redness to lt hip/thigh area, does have some edema. Note left for Dr. Cormier/Dr. Khan to address in am.
[2020-11-22] MEDS: oxyCODONE 5 MG Tablet PO (01:17)
[2020-11-22 06:03] VITALS: BP 112/62; PULSE 58; RESP 16; TEMP 36.7; O2SAT 96
[2020-11-22] MEDS: Enoxaparin 40 MG/0.4 ML Syringe SC (06:03)
[2020-11-22] MEDS: Ascorbic Acid 500 MG Tablet PO ×2 (06:05→16:38)
[2020-11-22] MEDS: Losartan Potassium 25 MG Tablet PO (06:05)
[2020-11-22] MEDS: Gabapentin 300 MG Capsule PO ×3 (06:05→16:37)
[2020-11-22] MEDS: Sertraline 100 MG Tablet PO (06:05)
[2020-11-22] MEDS: Senna/Docusate Sodium 1 Tablet 2 TABLET PO ×2 (06:05→16:37)
[2020-11-22] MEDS: Cyanocobalamin 500 MCG Tablet 1000 MCG PO (06:05)
[2020-11-22] MEDS: Multivitamins,Therapeutic Tablet 1 TABLET PO (09:07)
[2020-11-22] MEDS: Aspirin E.C. 81 MG Tablet PO (09:07)
--- NOTE | 2020-11-22 12:11 | NURSING ---
R' C/O ODOR AROUND GENITALIA. STATES SHE HAS HAD UTI'S WITH ODOR SIMILAR TO THIS. DENIES BURNING/FREQUENCY/URGENCY. ALSO, STATES HAS A HX OF CARUNCLES WITH SIMILAR ODOR. STATES USED ESTROGEN CREAM BUT GYNO DR DOES NOT LIKE TO USE A LOT D/T HX OF BREAST CA. WILL UPDATE DR. MONACO.
[2020-11-22 14:51] VITALS: BP 107/79; PULSE 66; RESP 16; TEMP 36.7; O2SAT 96
[2020-11-22] MEDS: Doxycycline 100 MG CAPSULE PO (16:37)
[2020-11-22] MEDS: Cephalexin 500 MG Capsule PO (16:38)
[2020-11-22 20:59] LABS: Mucous, Urine 0 SEEN /hpf (<or=2+); Red Blood Cells-Urine 0 SEEN /hpf (0-5)
[2020-11-22] MEDS: Atorvastatin Calcium 10 MG Tablet PO (20:59)
[2020-11-22] MEDS: MELATONIN 3 MG TABLET PO (20:59)
[2020-11-22 21:14] LABS: Color, Urine Yellow (Yellow); Glucose, Dipstick Normal (Normal); Ketone-Dipstick 5 mg/dl (Negative); Leukocyte Esterase-Dipstick 500 /ul (Negative); Nitrite-Dipstick Negative (Negative); Occult Blood-Urine 50 /ul (Negative); Protein-Dipstick 100 mg/dl (Negative); Urine Bilirubin Dipstick Negative (Negative); Urine Clarity Cloudy (Clear); Urine Urobilinogen 1 mg/dl (Normal)
[2020-11-22 21:40] LABS: Bacteria 1+ /hpf (None Seen); Squamous Epithelial Cells - UA 5-10 SEEN /hpf (5-10); White Blood Cells >100 SEEN /hpf (0-5)
[2020-11-22] MEDS: traMADol 50 MG Tablet PO (22:17)
--- NOTE | 2020-11-22 22:29 | NURSING ---
Patient c/o of burning pain in left leg. Patient unable to have sheet on her because it makes her leg burn too much. Dr. Khan notified of this. New orders given.
[2020-11-23 05:39] VITALS: BP 125/53; PULSE 60; RESP 16; TEMP 36.8; O2SAT 95
[2020-11-23] MEDS: Enoxaparin 40 MG/0.4 ML Syringe SC (05:40)
[2020-11-23] MEDS: Senna/Docusate Sodium 1 Tablet 2 TABLET PO ×2 (05:41→17:12)
[2020-11-23] MEDS: Cyanocobalamin 500 MCG Tablet 1000 MCG PO (05:41)
[2020-11-23] MEDS: Doxycycline 100 MG CAPSULE PO ×2 (05:41→17:11)
[2020-11-23] MEDS: Ascorbic Acid 500 MG Tablet PO ×2 (05:42→17:12)
[2020-11-23] MEDS: Losartan Potassium 25 MG Tablet PO (05:42)
[2020-11-23] MEDS: Sertraline 100 MG Tablet PO (05:42)
[2020-11-23] MEDS: Cephalexin 500 MG Capsule PO ×2 (05:42→17:12)
[2020-11-23] MEDS: Gabapentin 300 MG Capsule PO ×3 (08:01→17:11)
[2020-11-23] MEDS: Multivitamins,Therapeutic Tablet 1 TABLET PO (08:01)
[2020-11-23] MEDS: Aspirin E.C. 81 MG Tablet PO (08:01)
[2020-11-23 15:29] VITALS: BP 105/71; PULSE 71; RESP 18; TEMP 36.7; O2SAT 94
--- NOTE | 2020-11-23 15:36 | NURSING ---
Resident and family updated on COVID status on unit.
[2020-11-23] MEDS: Atorvastatin Calcium 10 MG Tablet PO (20:32)
[2020-11-23] MEDS: MELATONIN 3 MG TABLET PO (20:33)
[2020-11-24 04:47] VITALS: BP 128/57; PULSE 58; RESP 16; TEMP 36.8; O2SAT 97
[2020-11-24] MEDS: Cephalexin 500 MG Capsule PO ×2 (04:49→16:11)
[2020-11-24] MEDS: Ascorbic Acid 500 MG Tablet PO ×2 (04:49→16:11)
[2020-11-24] MEDS: Enoxaparin 40 MG/0.4 ML Syringe SC (04:49)
[2020-11-24] MEDS: Doxycycline 100 MG CAPSULE PO ×2 (04:49→16:11)
[2020-11-24] MEDS: Cyanocobalamin 500 MCG Tablet 1000 MCG PO (04:49)
[2020-11-24] MEDS: Sertraline 100 MG Tablet PO (04:49)
[2020-11-24] MEDS: Losartan Potassium 25 MG Tablet PO (04:50)
[2020-11-24] MEDS: Multivitamins,Therapeutic Tablet 1 TABLET PO (08:41)
[2020-11-24] MEDS: Gabapentin 300 MG Capsule PO ×3 (08:41→16:11)
[2020-11-24] MEDS: Aspirin E.C. 81 MG Tablet PO (08:41)
--- NOTE | 2020-11-24 12:18 | MDS.RN ---
Information for the mds was obtained from review of the clinical record, interview of resident, staff, and direct observation of resident's care.
[2020-11-24 14:07] VITALS: BP 138/42; PULSE 70; RESP 16; TEMP 36.4; O2SAT 96
[2020-11-24] MEDS: Acetaminophen 500 MG Tablet 1000 MG PO (15:49)
[2020-11-24] MEDS: Atorvastatin Calcium 10 MG Tablet PO (21:45)
[2020-11-24] MEDS: MELATONIN 3 MG TABLET PO (21:46)
[2020-11-25 02:17] VITALS: BP 113/66; PULSE 58; RESP 16; TEMP 36.7; O2SAT 98
[2020-11-25] MEDS: Acetaminophen 500 MG Tablet 1000 MG PO (02:18)
[2020-11-25] MEDS: Sertraline 100 MG Tablet PO (05:25)
[2020-11-25] MEDS: Ascorbic Acid 500 MG Tablet PO ×2 (05:25→17:00)
[2020-11-25] MEDS: Enoxaparin 40 MG/0.4 ML Syringe SC (05:25)
[2020-11-25] MEDS: Doxycycline 100 MG CAPSULE PO ×2 (05:25→17:01)
[2020-11-25] MEDS: Cephalexin 500 MG Capsule PO ×2 (05:25→17:01)
[2020-11-25] MEDS: Losartan Potassium 25 MG Tablet PO (05:25)
[2020-11-25] MEDS: Cyanocobalamin 500 MCG Tablet 1000 MCG PO (05:25)
[2020-11-25] MEDS: Gabapentin 300 MG Capsule PO ×3 (08:05→17:01)
[2020-11-25] MEDS: Multivitamins,Therapeutic Tablet 1 TABLET PO (08:06)
[2020-11-25] MEDS: Aspirin E.C. 81 MG Tablet PO (08:48)
[2020-11-25 10:00] VITALS: PULSE 62; RESP 16; O2SAT 96
[2020-11-25 16:00] VITALS: BP 122/56; PULSE 58; RESP 16; TEMP 37; O2SAT 98
[2020-11-25] MEDS: MELATONIN 3 MG TABLET PO (21:12)
[2020-11-25] MEDS: traMADol 50 MG Tablet 100 MG PO (21:12)
[2020-11-25] MEDS: Atorvastatin Calcium 10 MG Tablet PO (21:12)
[2020-11-26] MEDS: Enoxaparin 40 MG/0.4 ML Syringe SC (05:02)
[2020-11-26] MEDS: Losartan Potassium 25 MG Tablet PO (05:03)
[2020-11-26] MEDS: Cyanocobalamin 500 MCG Tablet 1000 MCG PO (05:03)
[2020-11-26] MEDS: Ascorbic Acid 500 MG Tablet PO ×2 (05:03→17:09)
[2020-11-26] MEDS: Sertraline 100 MG Tablet PO (05:03)
[2020-11-26] MEDS: Cephalexin 500 MG Capsule PO ×2 (05:03→17:09)
[2020-11-26] MEDS: Doxycycline 100 MG CAPSULE PO ×2 (05:03→17:09)
[2020-11-26] MEDS: Acetaminophen 500 MG Tablet 1000 MG PO (06:01)
[2020-11-26 06:19] LABS: Absolute Lymphocyte Count 1.54 X10^3/uL (0.83-4.51); Absolute Neutrophil Count 4.7 X10^3/uL (2.0-7.7); Basophil# 0.04 X10^3/uL; Basophil% 0.6 % (0-1); Eosinophil# 0.33 X10^3/uL; Eosinophils% 4.6 % (0-5); Hematocrit 38.9 % (37-47); Hemoglobin 12.1 g/dL (12.0-15.0); Lymphocyte # 1.54 X10^3/ul (4.0); Lymphocyte % 21.7 % (19-41); Mean Corp Hgb Conc 31.1 g/dL (32-36); Mean Corpuscular Hgb 29.7 pg (27.0-32.0); Mean Corpuscular Volume 95.6 fL (81-99); Mean Platelet Vol. 9.3 fl (6.2-12.0); NRBC Flagged by Analyzer 0 % (0-5); Neutrophil # 4.67 X10^3/uL (2.7-7.7); Neutrophil % 65.7 % (47-70); Platelet Count 519 K/mm3 (150-450); RBC Distribution Width CV 14.6 % (11.6-14.6); RBC Distribution Width SD 50.9 fl (35.1-43.9); Red Blood Count 4.07 M/mm3 (4.2-5.4); White Blood Count 7.1 K/mm3 (4.4-11.0)
[2020-11-26 06:39] LABS: Anion Gap 2 (5-15); BUN 27 mg/dL (7-18); BUN/Creat Ratio 39.6 RATIO (10-20); Calcium,Total 9.8 mg/dL (8.5-10.1); Chloride 109 mmol/L (98-107); Creatinine, Serum 0.68 mg/dL (0.55-1.02); EST Glomerular Filtration Rate 89 mL/min (>60); Est Glom Filt Rate - Afr Amer 108 mL/min (>60); Estimated Creatinine Clearance 43.07 ml/min; Glucose 75 mg/dL (74-106); Potassium 4.4 mmol/L (3.5-5.1); Sodium Level 142 mmol/L (136-145)
[2020-11-26] MEDS: Gabapentin 300 MG Capsule PO ×3 (08:18→17:09)
[2020-11-26] MEDS: Aspirin E.C. 81 MG Tablet PO (08:18)
[2020-11-26] MEDS: Multivitamins,Therapeutic Tablet 1 TABLET PO (08:18)
[2020-11-26 13:45] VITALS: BP 118/70; PULSE 68; RESP 16; TEMP 36.6; O2SAT 98
[2020-11-26] MEDS: Senna/Docusate Sodium 1 Tablet 2 TABLET PO (17:10)
[2020-11-26] MEDS: Atorvastatin Calcium 10 MG Tablet PO (21:02)
[2020-11-26] MEDS: MELATONIN 3 MG TABLET PO (21:02)
[2020-11-26] MEDS: traMADol 50 MG Tablet 100 MG PO (22:35)
[2020-11-27 04:00] VITALS: BP 115/73; PULSE 57; RESP 18; TEMP 36.6; O2SAT 96
[2020-11-27] MEDS: Senna/Docusate Sodium 1 Tablet 2 TABLET PO ×2 (05:55→16:47)
[2020-11-27] MEDS: Doxycycline 100 MG CAPSULE PO ×2 (05:55→16:48)
[2020-11-27] MEDS: Ascorbic Acid 500 MG Tablet PO ×2 (05:55→16:47)
[2020-11-27] MEDS: Cyanocobalamin 500 MCG Tablet 1000 MCG PO (05:55)
[2020-11-27] MEDS: Sertraline 100 MG Tablet PO (05:55)
[2020-11-27] MEDS: Losartan Potassium 25 MG Tablet PO (05:55)
[2020-11-27] MEDS: Cephalexin 500 MG Capsule PO ×2 (05:55→16:48)
[2020-11-27] MEDS: Enoxaparin 40 MG/0.4 ML Syringe SC (05:56)
[2020-11-27] MEDS: Aspirin E.C. 81 MG Tablet PO (08:07)
[2020-11-27] MEDS: Multivitamins,Therapeutic Tablet 1 TABLET PO (08:07)
[2020-11-27] MEDS: Gabapentin 300 MG Capsule PO ×3 (08:07→16:48)
[2020-11-27 13:52] VITALS: BP 112/47; PULSE 62; RESP 16; TEMP 36.4; O2SAT 96
[2020-11-27] MEDS: traMADol 50 MG Tablet 100 MG PO ×2 (16:48→22:48)
[2020-11-27] MEDS: Atorvastatin Calcium 10 MG Tablet PO (20:37)
[2020-11-27] MEDS: MELATONIN 3 MG TABLET PO (20:37)
[2020-11-28 06:33] VITALS: BP 107/56; PULSE 57; RESP 16; TEMP 37.1; O2SAT 97
[2020-11-28] MEDS: Enoxaparin 40 MG/0.4 ML Syringe SC (06:34)
[2020-11-28] MEDS: Ascorbic Acid 500 MG Tablet PO ×2 (06:34→16:54)
[2020-11-28] MEDS: Cephalexin 500 MG Capsule PO ×2 (06:35→16:54)
[2020-11-28] MEDS: Sertraline 100 MG Tablet PO (06:35)
[2020-11-28] MEDS: Cyanocobalamin 500 MCG Tablet 1000 MCG PO (06:35)
[2020-11-28] MEDS: Doxycycline 100 MG CAPSULE PO ×2 (06:35→16:54)
[2020-11-28] MEDS: Losartan Potassium 25 MG Tablet PO (06:35)
[2020-11-28] MEDS: Multivitamins,Therapeutic Tablet 1 TABLET PO (08:05)
[2020-11-28] MEDS: Gabapentin 300 MG Capsule PO ×3 (08:06→16:54)
[2020-11-28] MEDS: Aspirin E.C. 81 MG Tablet PO (08:06)
[2020-11-28 14:02] VITALS: BP 119/68; PULSE 60; RESP 18; TEMP 36.3; O2SAT 94
[2020-11-28] MEDS: traMADol 50 MG Tablet 100 MG PO (21:30)
[2020-11-28] MEDS: Atorvastatin Calcium 10 MG Tablet PO (21:31)
[2020-11-28] MEDS: MELATONIN 3 MG TABLET PO (21:31)
[2020-11-29] MEDS: Acetaminophen 500 MG Tablet 1000 MG PO ×2 (01:40→07:40)
[2020-11-29 06:48] VITALS: BP 104/72; PULSE 58; RESP 16; TEMP 36.1; O2SAT 98
[2020-11-29] MEDS: Ascorbic Acid 500 MG Tablet PO ×2 (06:50→16:40)
[2020-11-29] MEDS: Enoxaparin 40 MG/0.4 ML Syringe SC (06:50)
[2020-11-29] MEDS: Losartan Potassium 25 MG Tablet PO (06:50)
[2020-11-29] MEDS: Sertraline 100 MG Tablet PO (06:50)
[2020-11-29] MEDS: Doxycycline 100 MG CAPSULE PO ×2 (06:50→16:39)
[2020-11-29] MEDS: Cyanocobalamin 500 MCG Tablet 1000 MCG PO (06:50)
[2020-11-29] MEDS: Cephalexin 500 MG Capsule PO ×2 (06:50→16:40)
[2020-11-29] MEDS: Multivitamins,Therapeutic Tablet 1 TABLET PO (07:34)
[2020-11-29] MEDS: Aspirin E.C. 81 MG Tablet PO (07:35)
[2020-11-29] MEDS: Gabapentin 300 MG Capsule PO ×3 (07:35→16:39)
[2020-11-29 09:01] VITALS: PULSE 61; RESP 16; O2SAT 99
--- NOTE | 2020-11-29 12:08 | NURSING ---
Back from appointment in [place]. Transfers out of wheelchair to chair in room. States she has not eaten lunch and will order lunch.
--- NOTE | 2020-11-29 12:12 | NURSING ---
pt returned from Dr appointment. pt is continue strict TTWB to left lower extremity. pt is to f/u on 12/31/20
[2020-11-29 14:28] VITALS: BP 111/54; PULSE 61; RESP 16; TEMP 36; O2SAT 96
[2020-11-29] MEDS: Atorvastatin Calcium 10 MG Tablet PO (21:14)
[2020-11-29] MEDS: MELATONIN 3 MG TABLET PO (21:14)
[2020-11-29] MEDS: traMADol 50 MG Tablet 100 MG PO (21:21)
[2020-11-30] MEDS: Losartan Potassium 25 MG Tablet PO (05:11)
[2020-11-30] MEDS: Enoxaparin 40 MG/0.4 ML Syringe SC (05:11)
[2020-11-30] MEDS: Sertraline 100 MG Tablet PO (05:12)
[2020-11-30] MEDS: Ascorbic Acid 500 MG Tablet PO ×2 (05:12→17:51)
[2020-11-30] MEDS: Cyanocobalamin 500 MCG Tablet 1000 MCG PO (05:12)
[2020-11-30 05:14] VITALS: BP 109/59; PULSE 56; RESP 16; TEMP 36.6; O2SAT 95
[2020-11-30] MEDS: Gabapentin 300 MG Capsule PO ×3 (08:03→17:51)
[2020-11-30] MEDS: Multivitamins,Therapeutic Tablet 1 TABLET PO (08:03)
[2020-11-30] MEDS: Aspirin E.C. 81 MG Tablet PO (08:03)
[2020-11-30 14:05] VITALS: BP 103/79; PULSE 62; RESP 18; TEMP 36.9; O2SAT 93
--- NOTE | 2020-11-30 14:12 | CASEMGMT ---
Social Work Insurance approved additional days with NRD 12/01. The reviewer stated additional time approved for pt to coordinate getting a ramp or handrails installed, but a NOMNC will be issued at that review. Spoke with pt about above information. Pt's reaction was shocked. Pt stated I'm flabbergasted. Can I appeal the insurance decision?. SW explained pt does have appeal rights; however, pt is Tammy and inquired about what her reasoning to remain would be. Pt explained, she does not feel prepared to go home, she doesn't have anyone to assist her at home, still needs a ramp, and still needs assist from therapy for showering. SW explained pt is Tammy with all tasks - therapy is assisting with showering as that is a task completed in OT and pt is unable to do that without staff supervision due to safety, but pt does not need any physical assist nor set up assist. Also explained, IDT and SW discussed needing a ramp/handrails at the care plan meeting upon admission, and SW provided nonskilled HHC list at that meeting as well. Offered if pt feels more comfortable with assistance, to hire help from that list. Pt reluctantly agreed to possible insurance decision, and stated I don't need ramp resources, I have someone I can call today to complete it. SW offered any additional assistance and will assist in coordinating DC at that time. Pt appreciative and requested SW contact sarahew to provide updated information. Contacted nephew with information. Jose stated, I am not refuted the discharge, I know you all have explained all of this to her several times, as I was present at the care plan meeting where all of this was explained. Nephew did state he is more concerned with her memory or interpretation of information, which is not new, and has contacted her PCP prior to inquire. Nephew stated he will follow up with her PCP after DC to look further into her cognition. CECILY explained as far as physically, she will be fine at home alone, but r/t cognition concerns, having someone check in with her would be recommended. SW to order skilled HHC at DC. Nephew appreciative of SW and IDT assistance. Nephew inquired for SW to keep him updated on any information given to pt so he can be aware of it as well. SW agreed. Will continue to follow. Cielo Adams, NAZIA VEGAW
[2020-11-30] MEDS: traMADol 50 MG Tablet 100 MG PO (20:36)
[2020-11-30] MEDS: MELATONIN 3 MG TABLET PO (20:37)
[2020-11-30] MEDS: Atorvastatin Calcium 10 MG Tablet PO (20:37)
[2020-12-01 05:24] VITALS: BP 114/53; PULSE 59; RESP 16; TEMP 36.5; O2SAT 98
[2020-12-01] MEDS: Sertraline 100 MG Tablet PO (05:26)
[2020-12-01] MEDS: Losartan Potassium 25 MG Tablet PO (05:26)
[2020-12-01] MEDS: Enoxaparin 40 MG/0.4 ML Syringe SC (05:26)
[2020-12-01] MEDS: Cyanocobalamin 500 MCG Tablet 1000 MCG PO (05:26)
[2020-12-01] MEDS: Gabapentin 300 MG Capsule PO ×3 (05:26→17:50)
[2020-12-01] MEDS: Ascorbic Acid 500 MG Tablet PO ×2 (05:27→17:50)
[2020-12-01] MEDS: Multivitamins,Therapeutic Tablet 1 TABLET PO (08:46)
[2020-12-01] MEDS: Aspirin E.C. 81 MG Tablet PO (08:46)
[2020-12-01] MEDS: Acetaminophen 500 MG Tablet 1000 MG PO (11:56)
[2020-12-01 12:25] VITALS: PULSE 60; RESP 16; O2SAT 92
--- NOTE | 2020-12-01 13:44 | CASEMGMT ---
Social Work Insurance issued LCD 12/03, DC 12/04. Pt and nephew aware and agreeable. Pt stated the ramp will be installed 12/02. Pt agreeable for [facility] PT/OT. No DME needs. Family to transport pt home. Plan: DC home with family support 12/04 with [facility] PT/OT Cielo Adams, CAPACITY ANALYST PAINTER TUMBLING BARREL
[2020-12-01 15:39] VITALS: BP 112/53; PULSE 60; RESP 16; TEMP 37; O2SAT 92
--- NOTE | 2020-12-01 20:13 | DCINST_ITS ---
- Discharge Diagnoses Current Active Problems: Current Active and Chronic Problems Debility (Acute) Closed left hip fracture (Acute) Primary hyperparathyroidism (Chronic) Breast cancer (Chronic) Osteoporosis (Chronic) Hypertension (Chronic) Neuropathy (Chronic) Depression (Chronic) Hyperlipidemia (Chronic) You will use the following diet at home:: No restrictions, Regular Your food should be the consistency of: Regular, Puree Discharge Activity: Return to Normal Activity, May Shower, Use Walker Weight Bearing Status: Weight bearing as tolerated Call your doctor if you observe: Fever of 101 or Higher, Inability to urinate, Inability to have a bowel movement, Shortness of breath, Chest pain, Uncontrolled pain Allergies/Adverse Reactions: Allergies bacitracin Allergy (Verified 11/11/20 15:51) Rash codeine Allergy (Verified 11/11/20 15:51) Upset Stomach oxycodone [From OxyIR] Allergy (Verified 11/23/20 13:01) confused Medications to take at Discharge Ascorbic Acid [Vitamin C] 500 mg PO BID 11/11/20 Aspirin [Aspirin EC] 81 mg PO DAILY 11/11/20 Biotin 5 mg PO BID 11/11/20 Calcium Carbonate/Vitamin D3 [Calcium 500 mg Chewable Tablet] 1 ea PO DAILY 11/11/20 Cyanocobalamin (Vitamin B-12) [Vitamin B-12] 1,000 mcg PO DAILY 11/11/20 Fish Oil/Dha/Epa [Fish Oil 1,200 mg Fish Oil] 1 tab PO DAILY 11/11/20 Gabapentin [Neurontin] 300 mg PO TID 11/11/20 Irbesartan [Avapro] 75 mg PO DAILY 11/11/20 Melatonin 3 mg PO QHS 11/11/20 Multivitamin 1 ea PO DAILY 11/11/20 Sertraline HCl [Zoloft] 100 mg PO DAILY 11/11/20 Simvastatin [Zocor] 20 mg PO QHS 11/11/20 Sumatriptan Succinate [Imitrex] 100 mg PO PRN 11/11/20 Acetaminophen [Tylenol] 1,000 mg PO Q6H PRN tablet 12/01/20 Polyethylene Glycol 3350 [Miralax] 17 gm PO DAILY #30 packet 12/01/20 Rizatriptan Benzoate [Maxalt] 10 mg PO DAILY PRN PRN tablet 12/01/20 traMADol [Ultram] 100 mg PO Q6H PRN PRN #24 tablet 12/01/20 The following prescriptions were given: Polyethylene Glycol 3350 [Miralax] 17 gm PO DAILY #30 packet Transmission Status: Pending to [place] [id number] [place] [employer] traMADol [Ultram] 100 mg PO Q6H PRN PRN #24 tablet PRN Reason: Pain Score 6-10 Transmission Status: Received by [place] [id number] [place] [employer] Primary Care Physician: ANANDA NATHAN [Other] Please follow up with your Primary Care Physician in: 1 week. Test Results: Test results from this visit will be discussed in further detail at your follow- up appointment, if applicable. Please Follow Up With: Noah Penn APRN, JOSE When: 2 weeks. Proposed Discharge Date: 12/04/20
--- NOTE | 2020-12-01 20:14 | DS.PCM_ITS ---
Discharge Date and Diagnosis - Problem List Patient Problems: Active and Suspected Problems Debility (Acute) Closed left hip fracture (Acute) Date of Admission: 11/11/20 Date of Discharge: 12/04/20 - Primary Discharge Diagnosis Acute Problems: Active Problems Debility (Acute) Closed left hip fracture (Acute) - Secondary Discharge Diagnosis Chronic Problems: Chronic Problems Primary hyperparathyroidism (Chronic) Breast cancer (Chronic) Osteoporosis (Chronic) Hypertension (Chronic) Neuropathy (Chronic) Depression (Chronic) Hyperlipidemia (Chronic) Hospital Course and Treatment Imaging Results: 11/11/20 15:44 Diet: Regular - General Food consistency:: Regular Liquid Consistency:: Regular/Thin Is pt able to select menu?: Yes Operations: None Procedures: None Summary of Care Provided: The patient is a 74 year old Female with below past medical history hospitalized for left hip fracture, underwent closed reduction fixation 11/08/20, admitted to TCU with debility, here for rehabilitation, strengthening, prior to discharge home alone. 11/22/20 Doppler ultrasound left lower extremity NEGATIVE DVT. Discharge home alone with family support, [facility] PT/OT. Patient Problems: Active and Suspected Problems Debility (Acute) Closed left hip fracture (Acute) - Physical Exam Vitals/I&O's: Vital Signs Temp Pulse Resp BP Pulse Ox 98.6 F 60 16 112/53 L 92 12/01/20 15:39 12/01/20 15:39 12/01/20 15:39 12/01/20 15:39 12/01/20 15:39 Oxygen Delivery Method Room Air Weight: 59.534 kg Body Mass Index (BMI) 21.5 Intake and Output for Last 24 Hours 11/29/20 11/30/20 12/01/20 23:59 23:59 23:59 Intake Total 900 / 900 600 / 600 360 / 360 Balance 900 / 900 600 / 600 360 / 360 Microbiology Past 72 Hours 11/29/20 11:40 Nasal Secretion SARS-CoV-2 Antigen (Rapid) - Final Current Medications Acetaminophen (Acetaminophen 500 Mg Tablet) 1,000 mg PO Q6H PRN PRN Reason: Pain Score 1-3 Last Admin: 12/01/20 11:56 Dose: 1,000 mg Documented by: Ascorbic Acid (Ascorbic Acid 500 Mg Tablet) 500 mg PO BID JODY Last Admin: 12/01/20 17:50 Dose: 500 mg Documented by: Aspirin ([facility]in E.C. 81 Mg Tablet) [facility] Admin: 12/01/20 08:46 Dose: 81 mg Documented by: Atorvastatin Calcium (Atorvastatin Calcium 10 Mg Tablet) 10 mg PO QHS [facility] Last Admin: 11/30/20 20:37 Dose: 10 mg Documented by: Bisacodyl (Bisacodyl 10 Mg Suppository) 10 mg RECTAL DAILY PRN PRN Reason: Constipation Cyanocobalamin (Cyanocobalamin 500 Mcg Tablet) 1,000 mcg PO DAILY [facility] Last Admin: 12/01/20 05:26 Dose: 1,000 mcg Documented by: Enoxaparin Sodium (Enoxaparin 40 Mg/0.4 Ml Syringe) 40 mg SC DAILY@0600 [facility] Stop: 12/10/20 06:01 Last Admin: 12/01/20 05:26 Dose: 40 mg Documented by: Gabapentin (Gabapentin 300 Mg Capsule) 300 mg PO TIDCM [facility] Last Admin: 12/01/20 17:50 Dose: 300 mg Documented by: Losartan Potassium (Losartan Potassium 25 Mg Tablet) 25 mg PO DAILY [facility] Last Admin: 12/01/20 05:26 Dose: 25 mg Documented by: Magnesium Hydroxide (Magnesium Hydroxide 30 Ml Udc) 30 ml PO DAILY PRN PRN Reason: Constipation Melatonin (Melatonin 3 Mg Tablet) 3 mg PO QHS [facility] Last Admin: 11/30/20 20:37 Dose: 3 mg Documented by: Multivitamins (Multivitamins,Therapeutic Tablet) [facility] Last Admin: 12/01/20 08:46 Dose: 1 tablet Documented by: Ondansetron HCl (Ondansetron Odt 4 Mg Tablet) 4 mg PO Q6H PRN PRN PRN Reason: NAUSEA Pneumococcal 13-Valent Conj Vacc (Pneumoc 13-Rose Conj-Dip Crm/Pf 0.5 Ml Syringe) 0.5 ml IM .ONCE ONE Stop: 12/02/20 10:01 Polyethylene Glycol (Polyethylene Glycol 3350 17 Gm Packet) 17 gm PO DAILY [facility] Last Admin: 12/01/20 05:27 Dose: Not Given Documented by: Rizatriptan Benzoate (Rizatriptan Benzoate 10 Mg Tablet) 10 mg PO DAILY PRN PRN PRN Reason: MIGRAINE SYMPTOMS Senna/Docusate Sodium (Senna/Docusate Sodium 1 Tablet) 2 tablet PO BID [facility] Last Admin: 12/01/20 17:50 Dose: Not Given Documented by: Sertraline HCl (Sertraline 100 Mg Tablet) 100 mg PO DAILY [facility] Last Admin: 12/01/20 05:26 Dose: 100 mg Documented by: Tramadol HCl (Tramadol 50 Mg Tablet) 100 mg PO Q6H PRN PRN PRN Reason: Pain Score 6-10 Last Admin: 11/30/20 20:36 Dose: 100 mg Documented by: Discharge Diet: No Restrictions Discharge Activity: Return to Normal Activity, May Shower, Use Walker Weight Bearing Status: Weight bearing as tolerated Call your doctor if you observe: Fever of 101 or Higher, Inability to urinate, Inability to have a bowel movement, Shortness of breath, Chest pain, Uncontrolled pain Home Medications: Medications to take at Discharge Ascorbic Acid [Vitamin C] 500 mg PO BID 11/11/20 Aspirin [Aspirin EC] 81 mg PO DAILY 11/11/20 Biotin 5 mg PO BID 11/11/20 Calcium Carbonate/Vitamin D3 [Calcium 500 mg Chewable Tablet] 1 ea PO DAILY 11/11/20 Cyanocobalamin (Vitamin B-12) [Vitamin B-12] 1,000 mcg PO DAILY 11/11/20 Fish Oil/Dha/Epa [Fish Oil 1,200 mg Fish Oil] 1 tab PO DAILY 11/11/20 Gabapentin [Neurontin] 300 mg PO TID 11/11/20 Irbesartan [Avapro] 75 mg PO DAILY 11/11/20 Melatonin 3 mg PO QHS 11/11/20 Multivitamin 1 ea PO DAILY 11/11/20 Sertraline HCl [Zoloft] 100 mg PO DAILY 11/11/20 Simvastatin [Zocor] 20 mg PO QHS 11/11/20 Sumatriptan Succinate [Imitrex] 100 mg PO PRN 11/11/20 Acetaminophen [Tylenol] 1,000 mg PO Q6H PRN tablet 12/01/20 Polyethylene Glycol 3350 [Miralax] 17 gm PO DAILY #30 packet 12/01/20 Rizatriptan Benzoate [Maxalt] 10 mg PO DAILY PRN PRN tablet 12/01/20 traMADol [Ultram] 100 mg PO Q6H PRN PRN #24 tablet 12/01/20 Following Prescriptions Were Given to Patient: Polyethylene Glycol 3350 [Miralax] 17 gm PO DAILY #30 packet Transmission Status: Pending to [place] [id number] [place] [employer] traMADol [Ultram] 100 mg PO Q6H PRN PRN #24 tablet PRN Reason: Pain Score 6-10 Transmission Status: Received by [place] [id number] [place] [employer] Primary Care Physician: ANANDA NATHAN [Other] Please follow up with your Primary Care Physician in: 1 week. Please Follow Up With: Noah Penn APRN, JOSE When: 2 weeks. Disposition: Home with Home Health Minutes spent on discharge:: 35 Patient Condition:: Stable Medical Necessity - Tobacco Use Smoking Status: Former smoker Tobacco Use: Cigarettes Meaningful Use Info Meaningful Use Diagnoses (Choose all that apply): None applicable
[2020-12-01] MEDS: Atorvastatin Calcium 10 MG Tablet PO (22:17)
[2020-12-01] MEDS: MELATONIN 3 MG TABLET PO (22:17)
[2020-12-01] MEDS: traMADol 50 MG Tablet 100 MG PO (22:22)
[2020-12-02 06:46] VITALS: BP 100/56; PULSE 64; RESP 16; TEMP 36.6; O2SAT 98
[2020-12-02] MEDS: Cyanocobalamin 500 MCG Tablet 1000 MCG PO (06:49)
[2020-12-02] MEDS: Acetaminophen 500 MG Tablet 1000 MG PO (06:49)
[2020-12-02] MEDS: Losartan Potassium 25 MG Tablet PO (06:49)
[2020-12-02] MEDS: Enoxaparin 40 MG/0.4 ML Syringe SC (06:49)
[2020-12-02] MEDS: Ascorbic Acid 500 MG Tablet PO ×2 (06:49→16:17)
[2020-12-02] MEDS: Sertraline 100 MG Tablet PO (06:50)
[2020-12-02] MEDS: Gabapentin 300 MG Capsule PO ×3 (09:08→16:17)
[2020-12-02] MEDS: Multivitamins,Therapeutic Tablet 1 TABLET PO (09:08)
[2020-12-02] MEDS: Aspirin E.C. 81 MG Tablet PO (09:08)
--- NOTE | 2020-12-02 12:55 | MDS.RN ---
Pain interview for keyla 12/04/20 completed.
--- NOTE | 2020-12-02 13:23 | NURSING ---
R' NOTIFIED OF COVID STATUS ON UNIT.
--- NOTE | 2020-12-02 14:37 | NURSING ---
Resident and family updated on COVID status on the unit.
[2020-12-02 15:05] VITALS: BP 103/56; PULSE 80; RESP 18; TEMP 36.1; O2SAT 97
[2020-12-02] MEDS: traMADol 50 MG Tablet 100 MG PO (21:24)
[2020-12-02] MEDS: MELATONIN 3 MG TABLET PO (21:26)
[2020-12-02] MEDS: Atorvastatin Calcium 10 MG Tablet PO (21:26)
[2020-12-03 05:39] LABS: Basophil# 0.02 X10^3/uL; Basophil% 0.3 % (0-1); Eosinophil# 0.22 X10^3/uL; Eosinophils% 3.3 % (0-5); Hematocrit 39.6 % (37-47); Hemoglobin 12.3 g/dL (12.0-15.0); Lymphocyte % 28.3 % (19-41); Mean Corp Hgb Conc 31.1 g/dL (32-36); Mean Corpuscular Hgb 29.9 pg (27.0-32.0); Mean Corpuscular Volume 96.1 fL (81-99); Mean Platelet Vol. 9.5 fl (6.2-12.0); Monocyte# 0.54 X10^3/uL; NRBC Flagged by Analyzer 0 % (0-5); Neutrophil # 4.01 X10^3/uL (2.7-7.7); Neutrophil % 59.8 % (47-70); Platelet Count 384 K/mm3 (150-450); Red Blood Count 4.12 M/mm3 (4.2-5.4); White Blood Count 6.7 K/mm3 (4.4-11.0)
[2020-12-03 05:53] LABS: Anion Gap 1 (5-15); BUN 19 mg/dL (7-18); BUN/Creat Ratio 24.3 RATIO (10-20); Calcium,Total 9.9 mg/dL (8.5-10.1); Chloride 107 mmol/L (98-107); Creatinine, Serum 0.78 mg/dL (0.55-1.02); EST Glomerular Filtration Rate 76 mL/min (>60); Est Glom Filt Rate - Afr Amer 92 mL/min (>60); Estimated Creatinine Clearance 43.07 ml/min; Glucose 80 mg/dL (74-106); Potassium 4.4 mmol/L (3.5-5.1); Sodium Level 140 mmol/L (136-145)
[2020-12-03] MEDS: Enoxaparin 40 MG/0.4 ML Syringe SC (06:59)
[2020-12-03] MEDS: Losartan Potassium 25 MG Tablet PO (06:59)
[2020-12-03 07:00] VITALS: BP 112/66; PULSE 58; RESP 16; TEMP 36.4; O2SAT 97
[2020-12-03] MEDS: Cyanocobalamin 500 MCG Tablet 1000 MCG PO (07:00)
[2020-12-03] MEDS: Sertraline 100 MG Tablet PO (07:00)
[2020-12-03] MEDS: Ascorbic Acid 500 MG Tablet PO ×2 (07:00→17:14)
[2020-12-03] MEDS: Aspirin E.C. 81 MG Tablet PO (08:26)
[2020-12-03] MEDS: Multivitamins,Therapeutic Tablet 1 TABLET PO (08:26)
[2020-12-03] MEDS: Gabapentin 300 MG Capsule PO ×3 (08:26→17:15)
--- NOTE | 2020-12-03 08:51 | CASEMGMT ---
Social Work BIMS and PHQ-9 completed for MDS assessment. Cielo Adams, DISTRICT CAPTAIN MAINTENANCE MECHANIC SUPERVISOR
[2020-12-03 14:17] VITALS: PULSE 60; RESP 16; O2SAT 95
[2020-12-03 15:12] VITALS: BP 123/65; PULSE 60; RESP 16; TEMP 36.9; O2SAT 95
[2020-12-03] MEDS: traMADol 50 MG Tablet 100 MG PO (22:14)
[2020-12-03] MEDS: Atorvastatin Calcium 10 MG Tablet PO (22:14)
[2020-12-03] MEDS: MELATONIN 3 MG TABLET PO (22:14)
[2020-12-04] MEDS: Acetaminophen 500 MG Tablet 1000 MG PO ×2 (03:55→10:41)
[2020-12-04] MEDS: Ascorbic Acid 500 MG Tablet PO (06:35)
[2020-12-04] MEDS: Cyanocobalamin 500 MCG Tablet 1000 MCG PO (06:35)
[2020-12-04] MEDS: Sertraline 100 MG Tablet PO (06:36)
[2020-12-04] MEDS: Gabapentin 300 MG Capsule PO (06:36)
[2020-12-04] MEDS: Losartan Potassium 25 MG Tablet PO (06:36)
[2020-12-04 06:38] VITALS: BP 116/83; PULSE 56; RESP 16; TEMP 36.2; O2SAT 100
[2020-12-04] MEDS: Aspirin E.C. 81 MG Tablet PO (08:12)
[2020-12-04] MEDS: Multivitamins,Therapeutic Tablet 1 TABLET PO (08:12)
[2020-12-04 10:42] VITALS: PULSE 64; RESP 16; O2SAT 94
[2020-12-04 13:23] VITALS: BP 120/63; PULSE 64; RESP 16; TEMP 37; O2SAT 94
== END 2020-12-04 11:00 | disposition home health service (06) | DRG 561 ==
PROVIDERS: Admitting Provider Family Medicine Geriatric Medicine; Visit Provider Family Medicine Geriatric Medicine
DX: S72.002D Fracture of unspecified part of neck of left femur, subsequent encounter for closed fracture with routine healing (principal); W18.39XD Other fall on same level, subsequent encounter; E78.5 Hyperlipidemia, unspecified; I10 Essential (primary) hypertension; G62.9 Polyneuropathy, unspecified; F32.9 Major depressive disorder, single episode, unspecified; E21.0 Primary hyperparathyroidism; Z87.891 Personal history of nicotine dependence; G43.909 Migraine, unspecified, not intractable, without status migrainosus
CPT/HCPCS: 36415; 80048; 81001; 85025; 87077; 87086; 87088; 87186; 87426; 87635; 97110; 97116; 97162; 97166; 97530; 97535; 97802; U0003

== ENCOUNTER → 2020-11-22 08:30 | Outpatient (CLI) | payer MEDICARE, SELFPAY ==
[2020-11-11 15:22] VITALS: BMI 21.5
--- NOTE | 2020-11-22 08:32 | VDLE_ITS ---
Reason For Study: Swelling RIGHT LEFT CFV is compressible, spontaneous, phasic, GSV is normal. competent and demonstrates normal CFV is compressible, spontaneous, phasic, augmentation. competent, and demonstrates normal Procedure augmentation. Exam performed portable in patient room. FV is compressible, spontaneous, phasic, A preliminary report was called and/or faxed competent and demonstrates normal to TCU. augmentation. POP V is compressible, spontaneous, phasic, competent and demonstrates normal augmentation. T/P Trunk is compressible. PTV is compressible. LT PerV is compressible. Interpretation Summary Deep veins of the left lower extremity are patent and compressible segmentally. There is no evidence of left lower extremity deep vein thrombosis. Valvular competence appears intact within the proximal deep venous system on the left . The left great saphenous vein appears patent and compressible segmentally. Ordering Physician: Brent Khan Referring Physician: Brent Khan Chi Performed By: Michelle Vogt, DAVID, RVT
== END ==
PROVIDERS: Referring Provider Family Medicine Geriatric Medicine; Visit Provider Family Medicine Geriatric Medicine
DX: M79.89 Other specified soft tissue disorders (principal)
CPT/HCPCS: 93971